=== PATIENT | female | born 1990 | race Two or more races ===

== ENCOUNTER 2024-07-24 09:45 | Emergency (ER) | payer OTHER ==
[~2024-07-24] VITALS: Ht 149.9 cm; Wt 88.5 kg
[2024-07-24] MEDS ORDERED: FOLIC ACID20 MG (10:40)
[2024-07-24 11:37] LABS: HEMATOCRIT 41.2 % (36.0-45.00); HEMOGLOBIN 13.6 g/dL (12.0-15.00); MEAN CELL VOLUME 85.4 fL (80.00-100.00); MEAN CORPUSCULAR HEMOGLOBIN 28.2 pg (27.00-32.0); MEAN CORPUSCULAR HGB CONC 33.1 g/dl (32.0-36.0); PLATELET COUNT 283 K/uL (150-450); RED BLOOD COUNT 4.82 M/uL (4.00-6.00); RED CELL DISTRIBUTION WIDTH 13.7 % (11.5-14.5)
[2024-07-24 11:57] LABS: PH,URINE 6.5 (5.0-8.0); URINE APPEARANCE Clear; URINE BILIRRUBIN Negative (NEGATIVE); URINE BLOOD Large; URINE COLOR Yellow; URINE GLUCOSE Negative (NEGATIVE); URINE KETONE Negative (NEGATIVE); URINE LEUKOCYTE Trace; URINE NITRATE Negative; URINE PROTEIN Negative (NEGATIVE); URINE UROBILINOGEN 0.2 E.U./dl
[2024-07-24 12:01] LABS: URINE BACTERIA 368.4 uL (0.0-1933); URINE EPITHELIAL CELLS 11.3 uL (0.0-38.8); URINE RBC 1073.5 uL (0.0-20.8); URINE WBC 52.5 uL (0.0-23.2)
[2024-07-24 12:36] LABS: CREATININE SERUM 0.65 mg/dL (0.55-1.02); GFR 105.63; POTASSIUM 4.21 mEq/L (3.5-5.1)
[2024-08-09] MEDS ORDERED: PROAIR RESPICL90 MCG IH (15:25)
== END 2024-07-24 16:04 | disposition home or self-care (01) ==
LOC: ER 09:48
PROVIDERS: General Practice
DX: O20.8 Other hemorrhage in early pregnancy (principal); Z3A.01 Less than 8 weeks gestation of pregnancy; Z91.013 Allergy to seafood

== ENCOUNTER 2024-08-12 09:54 | Day surgery (SDC) | payer OTHER ==
[2024-08-09 14:42] LABS: HEMOGLOBIN 13.9 g/dL (12.0-15.00); MEAN CELL VOLUME 84.6 fL (80.00-100.00); MEAN CORPUSCULAR HGB CONC 33.1 g/dl (32.0-36.0); PH,URINE 5.5 (5.0-8.0); PLATELET COUNT 295 K/uL (150-450); RED BLOOD COUNT 4.96 M/uL (4.00-6.00); RED CELL DISTRIBUTION WIDTH 13.4 % (11.5-14.5); URINE APPEARANCE Clear; URINE BILIRRUBIN Negative (NEGATIVE); URINE BLOOD Negative; URINE COLOR Yellow; URINE GLUCOSE Negative (NEGATIVE); URINE KETONE Negative (NEGATIVE); URINE LEUKOCYTE Moderate; URINE NITRATE Negative; URINE PROTEIN Negative (NEGATIVE); URINE UROBILINOGEN 0.2 E.U./dl
[2024-08-09 14:43] LABS: URINE BACTERIA 1494.2 uL (0.0-1933); URINE EPITHELIAL CELLS 23.4 uL (0.0-38.8); URINE RBC 6.7 uL (0.0-20.8); URINE WBC 133.4 uL (0.0-23.2)
[2024-08-09 15:07] LABS: ALBUMIN 4.1 gm/dL (3.4-5.0); BILIRUBIN TOTAL 0.5 mg/dL (0.3-1.2); CALCIUM 9.7 mg/dL (8.5-10.1); CREATININE SERUM 0.63 mg/dL (0.55-1.02); GFR 109.51; GLOBULINA 3.3 G/DL (2.4-3.5); POTASSIUM 4.14 mEq/L (3.5-5.1); TOTAL PROTEIN 7.4 gm/dL (6.4-8.2)
[2024-08-09 15:26] LABS: INR 1.02; PARTIAL THROMBOPLASTIN TIME 31.1 SECONDS (22.0-34.0); PROTHROMBIN TIME 11.1 SECONDS (9.0-11.5)
[2024-08-09 15:27] LABS: URINE CAST 0.14 uL (0.0-1.40)
[~2024-08-12 09:54] MED LIST: FOLIC ACID20 MG; PROAIR RESPICL90 MCG IH
[2024-08-12] MEDS ORDERED: OXYTOCIN 10 UNITS/ML VIAL ONE (15:08)
[2024-08-12] MEDS ORDERED: MORPHINE SULFATE 4 MG/ML VIAL IV ONE (18:50)
== END 2024-08-12 22:20 | disposition home or self-care (01) ==
LOC: CIR.AMB 09:54
PROVIDERS: ATTEND Specialist
DX: O02.1 Missed abortion (principal); Z88.1 Allergy status to other antibiotic agents